=== PATIENT | female | born 1965 | race Caucasian/White ===

== ENCOUNTER → 2017-06-29 | Outpatient (CLI) | payer OTHER | END | disposition home or self-care (01) | LOC: MI 12:38 | PROC: BR39ZZZ Magnetic Resonance Imaging (MRI) of Lumbar Spine (ICD-10-PCS; principal; 2017-06-29) | DX: M54.5 Low back pain (principal) ==

== ENCOUNTER → 2019-05-19 | Outpatient (CLI) | payer OTHER | END | disposition home or self-care (01) | LOC: MI 05-18 14:00 | PROC: BP38ZZZ Magnetic Resonance Imaging (MRI) of Right Shoulder (ICD-10-PCS; principal; 2019-05-19) | DX: M25.519 Pain in unspecified shoulder (principal) ==